=== PATIENT | male | born 2000 | race Hispanic/Latino ===

== ENCOUNTER 2024-06-06 13:32 | Emergency (ER) | payer OTHER ==
[~2024-06-06] VITALS: Ht 170.2 cm; Wt 56.7 kg
[2024-06-06] MEDS: 0.9%NACL 1000ML 1,000 ML IV ONE (14:05)
[2024-06-06 14:26] LABS: BASOPHILS # (AUTO) 0.04 K/uL (0.00-0.20); BASOPHILS % (AUTO) 0.7 % (0.0-5.0); EOSINOPHILS # (AUTO) 0.07 K/uL (0.00-0.70); EOSINOPHILS % (AUTO) 1.2 % (0.0-8.0); HEMATOCRIT 45.1 % (42-54); IMMATURE GRANULOCYTE ABSOLUTE 0.02 K/uL (0-1); LYMPHOCYTES # (AUTO) 2.3 K/uL (1.0-4.8); LYMPHOCYTES % (AUTO) 38.7 % (21.0-51.0); MEAN CORPUSCULAR HEMOGLOBIN 30.3 pg (27.0-33.0); MEAN CORPUSCULAR HGB CONC 34.1 g/dL (32.0-36.0); MEAN CORPUSCULAR VOLUME 88.6 fL (79-99); MONOCYTES # (AUTO) 0.5 K/uL (0.1-1.0); MONOCYTES % (AUTO) 8.1 % (3.0-13.0); PLATELET COUNT (AUTO) 368 K/uL (130-400); RED BLOOD CELL COUNT(AUTO) 5.09 MIL/uL (4.50-6.20); RED CELL DISTRIBUTION WIDTH 11.8 % (11.0-15.5); WHITE BLOOD COUNT (AUTO) 5.9 K/uL (4.8-10.8)
[2024-06-06 14:39] LABS: INR 0.94 (0.85-1.15); PROTHROMBIN TIME 10.6 SEC (9.6-11.6)
[2024-06-06] MEDS: diazePAM 5 MG/ML 2 ML SYG IVP ONE (14:39)
[2024-06-06 14:41] LABS: PARTIAL THROMBOPLASTIN TIME 28.2 SEC (26.3-35.5)
[2024-06-06 14:43] LABS: ALCOHOL, BLOOD < 3 mg/dL (0-10); CREATINE KINASE, TOTAL 189 U/L (21-232)
--- NOTE | 2024-06-06 14:46 | HMCIMG ---
CHEST 1VW REASON: tachycardia COMPARISON: None. FINDINGS: Single view of the chest was obtained. Lungs are clear. Heart size is normal. There is no pulmonary vascular congestion. Mediastinum and bony thorax appear unremarkable. IMPRESSION: 1. Normal single view chest x-ray.
[2024-06-06 14:51] LABS: B-TYPE NATRIURETIC PEPTIDE < 5 pg/mL (0-100)
[2024-06-06] MEDS ORDERED: MAGNESIUM 2GM PREMIX 50ML 50 ML IV SCH (15:28)
--- NOTE | 2024-06-06 15:38 | ERN ---
General Chief Complaint: Numbness Stated Complaint: NUMBNESS Source: patient History of Present Illness Initial Comments PATIENT IS A 24-YEAR-OLD MALE COMING IN TO BE EVALUATED FOR ANXIETY. PATIENT STATES THE SYMPTOMS HAVE BEEN ONGOING FOR SOME TIME. PATIENT ALSO STATES THAT HE HAS BEEN VAPING AND THIS MORNING STARTED HAVING SHORTNESS OF BREATH. Allergies: Coded Allergies: No Known Allergies (Unverified Allergy, Unknown, 06/06/24) Past Medical History Past Medical History: No Pertinent History Past Surgical History: None ROS Dictation CONSTITUTIONAL: NO CHILLS, NO FEVER, NO WEAKNESS, NO DIAPHORESIS, NO MALAISE. HEAD/FACE: NO SIGNS OF TRAUMA. EENT: NO EYE PAIN, NO BLURRED VISION, NO TEARING, NO DOUBLE VISION, NO EAR PAIN, NO EAR DISCHARGE, NO NOSE PAIN, NO NASAL CONGESTION, NO THROAT PAIN, NO THROAT SWELLING, NO MOUTH PAIN. RESPIRATORY: NO COUGH, NO ORTHOPNEA, NO SOB, NO STRIDOR, NO WHEEZING. CARDIOVASCULAR: NO CHEST PAIN, NO EDEMA, NO PALPITATIONS, NO SYNCOPE. GASTROINTESTINAL/ABDOMINAL: NO ABDOMINAL PAIN, NO CONSTIPATION, NO DIARRHEA, NO NAUSEA, NO VOMITING. GENITOURINARY: NO ABNORMAL DISCHARGE, NO DYSURIA, NO FREQUENT URINATION, NO HEMATURIA. NO COMPLAINTS OF PAIN IN THE GENITALS. MUSCULOSKELETAL: NO BACK PAIN, NO GOUT, NO JOINT PAIN, NO JOINT SWELLING, NO MUSCLE PAIN, NO MUSCLE STIFFNESS, NO NECK PAIN. INTEGUMENTARY: NO CHANGE IN COLOR, NO CHANGE IN HAIR/NAILS, NO DRYNESS, NO LESION, NO LUMPS, NO RASH. NEUROLOGICAL/PSYCH: NO ANXIETY, NOT DEPRESSED, NO EMOTIONAL PROBLEM, NO HEADACHE, NO NUMBNESS, NO PRE-EXISTING DEFICIT, NO HISTORY OF SEIZURES, NO TREMORS, NO WEAKNESS. HEMATOLOGIC/LYMPHATIC: NOT ANEMIC, NO HISTORY OF BLOOD CLOTS, NO APPARENT BLEEDING, NO BRUISING, GLANDS NOT SWOLLEN. ALL SYSTEMS NEGATIVE, EXCEPT NOTED. Physical Exam Physical Exam Dictation VITAL SIGNS: REVIEWED. GENERAL APPEARANCE: ALERT, ORIENTED X3, NO ACUTE DISTRESS, OBESE. HEAD AND FACE: NON-TRAUMATIC. EYES: PERRL, PINK CONJUNCTIVAS, EYELID NO TRAUMA, ANTERIOR CHAMBER CLEAR. EARS: PINNAS INTACT AND NO SIGNS OF TRAUMA OR ERYTHEMA. EAR CANALS CLEAR AND NO DISCHARGE. TMS NO ERYTHEMA. NOSE: NO DISCHARGE, NO BLEEDING. OROPHARYNX: MOUTH NORMAL, TEETH NO CARIES, TONGUE PINK. PHARYNX CLEAR, NO ERYTHEMA. TONSILS NO EXUDATES, NO ABSCESSES NOTED. MUCOUS MEMBRANE MOIST. NECK: SUPPLE, NON-TENDER, NO THYROMEGALY, NO MASSES, NO JVD, NO BRUITS. BREAST: DEFERRED. CHEST: NO TENDERNESS, NO CREPITUS, NO PARADOXICAL MOVEMENT, NO RETRACTIONS. LUNGS: CLEAR, WELL-VENTILATED, SYMMETRIC, NO RALES, NO WHEEZING, NO RHONCHI, NO STRIDOR, GOOD BREATH SOUNDS BILATERALLY. HEART: REGULAR RATE, REGULAR RHYTHM, NO MURMUR, NO GALLOPS. VASCULAR: NO PERIPHERAL EDEMA. ABDOMEN: SOFT, POSITIVE BOWEL SOUNDS, NONDISTENDED, NO GUARDING, NONTENDER, NO REBOUND, NO MASSES NO HEPATOMEGALY, NO SPLENOMEGALY, NO ALEMAN'S SIGN, NO HERNIAS. RECTAL: DEFERRED. GENITAL: DEFERRED. NEUROLOGICAL: NORMAL SPEECH, GROSS MOTOR FUNCTION INTACT, GROSS SENSORY FUNCTION INTACT. MUSCULOSKELETAL: NECK NONTENDER, FULL RANGE OF MOTION, BACK NONTENDER, FULL RANGE OF MOTION. EXTREMITIES: NONTENDER, FULL RANGE OF MOTION. SKIN: COLOR PINK, DRY, NO TURGOR, NO RASH, NO LACERATIONS, NO ABRASIONS, NO CONTUSIONS. LYMPHATICS: DEFERRED. Results Laboratory and Microbiology Lab and Micro Result Laboratory Tests Test 06/06/24 14:05 06/06/24 15:20 White Blood Count 5.9 K/uL (4.8-10.8) Red Blood Count 5.09 MIL/uL (4.50-6.20) Hemoglobin 15.4 g/dL (14.0-18.0) Hematocrit 45.1 % (42-54) Mean Corpuscular Volume 88.6 fL (79-99) Mean Corpuscular Hemoglobin 30.3 pg (27.0-33.0) Mean Corpuscular Hemoglobin Concent 34.1 g/dL (32.0-36.0) Red Cell Distribution Width 11.8 % (11.0-15.5) Platelet Count 368 K/uL (130-400) Mean Platelet Volume 10.1 fL (7.5-10.5) Immature Granulocyte % (Auto) 0.3 % (0-1) Neutrophils (%) (Auto) 51.0 % (40.0-77.0) Lymphocytes (%) (Auto) 38.7 % (21.0-51.0) Monocytes (%) (Auto) 8.1 % (3.0-13.0) Eosinophils (%) (Auto) 1.2 % (0.0-8.0) Basophils (%) (Auto) 0.7 % (0.0-5.0) Neutrophils # (Auto) 3.0 K/uL (1.8-7.7) Lymphocytes # (Auto) 2.3 K/uL (1.0-4.8) Monocytes # (Auto) 0.5 K/uL (0.1-1.0) Eosinophils # (Auto) 0.07 K/uL (0.00-0.70) Basophils # (Auto) 0.04 K/uL (0.00-0.20) Absolute Immature Granulocyte (auto 0.02 K/uL (0-1) Nucleated Red Blood Cells 0.0 % (0.0-0.19) Prothrombin Time 10.6 SEC (9.6-11.6) Prothromb Time International Ratio 0.94 (0.85-1.15) Activated Partial Thromboplast Time 28.2 SEC (26.3-35.5) Sodium Level 141 mmol/L (136-145) Potassium Level 3.2 mmol/L (3.5-5.1) L Chloride Level 100 mmol/L (101-111) L Carbon Dioxide Level 26 mmol/L (21-32) Blood Urea Nitrogen 9 mg/dL (7-18) Creatinine 1.1 mg/dL (0.5-1.3) Glomerular Filtration Rate Calc 96 mL/min (>90) Random Glucose 154 mg/dL (70-105) H Total Calcium 9.6 mg/dL (8.5-10.1) Magnesium Level 1.70 mg/dL (1.80-2.40) L Total Creatine Kinase 189 U/L (21-232) Troponin I High Sensitivity < 4 ng/L (4-75) L B-Type Natriuretic Peptide < 5 pg/mL (0-100) Serum Alcohol < 3 mg/dL (0-10) Urine Color LIGHT-YELLOW (YELLOW) Urine Appearance CLEAR (CLEAR) Urine pH 5.0 (5.0-8.0) Urine Specific [place] 1.011 (1.001-1.031) Urine Protein NEGATIVE mg/dL (NEGATIVE) Urine Glucose (UA) 30 mg/dL (NEGATIVE) H Urine Ketones 5 mg/dL (NEGATIVE) H Urine Occult Blood NEGATIVE (NEGATIVE) Urine Nitrate NEGATIVE (NEGATIVE) Urine Bilirubin NEGATIVE mg/dL (NEGATIVE) Urine Urobilinogen 0.2 mg/dL (0.2-1.0) Urine Leukocyte Esterase NEGATIVE Amy/uL Urine RBC 0-1 /HPF (0-1) Urine WBC 0-1 /HPF (0-1) Urine Bacteria None /HPF (None Seen) Urine Opiates Screen NEGATIVE (NEGATIVE) Urine Barbiturates Screen NEGATIVE (NEGATIVE) Urine Phencyclidine Screen NEGATIVE (NEGATIVE) Urine Amphetamines Screen NEGATIVE (NEGATIVE) Urine Benzodiazepines Screen POSITIVE (NEGATIVE) H Urine Cocaine Screen NEGATIVE (NEGATIVE) Urine Marijuana (THC) Screen POSITIVE (NEGATIVE) H Labs Reviewed?: Yes EKG/XRAY/US/CT/MRI EKG Comment 06/06/2024 TIME 1:55 P.M. VENTRICULAR RATE [address] WAVE ELEVATION OR DEPRESSION X-RAY Comment [address] [address] IMAGING REPORT Signed PATIENT: STEFANO BARRAGAN MR#: [id number] : 2000 SEX: M AGE: 24 LOCATION: [facility] ORDER 1352 STATUS: [facility] REPORT#: [id number] SERVICE 1346 REASON: tachycardia ORDERING PHYSICIAN: KARTHIKEYAN GOMES MD PROCEDURE: CXR1VW - CHEST 1VW CHEST 1VW REASON: tachycardia COMPARISON: None. FINDINGS: Single view of the chest was obtained. Lungs are clear. Heart size is normal. There is no pulmonary vascular congestion. Mediastinum and bony thorax appear unremarkable. IMPRESSION: 1. Normal single view chest x-ray. DICTATED BY: BANG SILVA MD DATE: 06/06/241442 ELECTRONICALLY SIGNED BY: ABNG SILVA MD DATE: 06/06/241445 [facility] MDM: DIFFERENTIAL DIAGNOSIS: ANXIETY, PANIC ATTACK, SO SHE WAS ABUSE, PATIENT IS A 24-YEAR-OLD MALE COMING IN TO BE EVALUATED FOR SHORTNESS OF BREATH AND FEELING ANXIOUS. LABORATORY WORKUP NEGATIVE FOR ACUTE FINDINGS. PATIENT DID PRESENT WITH MILD DECREASE IN POTASSIUM AND MAGNESIUM WHICH WERE REPLACED. PATIENT ALSO WAS POSITIVE FOR CANNABIS WHICH WAS COUNSELED AGAINST. PATIENT WILL BE DISCHARGED IN STABLE CONDITION WITH A DIAGNOSIS OF ANXIETY AND CANNABIS ABUSE. ED Course Orders Procedure Category Date Status Time Cbc With Differential LAB 06/06/24 Complete 13:46 Prothrombin Time With LAB 06/06/24 Complete INR 13:46 B-Type Natriuretic LAB 06/06/24 Complete Peptide 13:46 Chest 1vw RAD 06/06/24 Resulted 13:46 12 Lead Ekg Tracing- EKG 06/06/24 Logged Technical 13:46 0.9%Nacl 1000ml (Ns PHA 06/06/24 Complete 1000ml) 14:00 Magnesium LAB 06/06/24 Complete 13:46 Creatine Kinase, Total LAB 06/06/24 Complete 13:46 Troponin I High LAB 06/06/24 Complete Sensitivity 13:46 Urinalysis Profile LAB 06/06/24 Complete 13:46 Partial LAB 06/06/24 Complete Thromboplastin Time 13:46 Drug Screen Urine LAB 06/06/24 Complete 13:46 Alcohol, Blood LAB 06/06/24 Complete 13:46 Diazepam 5 Mg/Ml 2 Ml PHA 06/06/24 Complete Syg (Valium 5 Mg/M 14:30 Magnesium 2gm Premix PHA 06/06/24 In Process 50ml (Magnesium 2gm 15:28 Basic Metabolic Panel LAB 06/06/24 Complete 16:10 Potassium Bicarb/Cit PHA 06/06/24 Verified Ac 25meq (K-Lyte Ta 17:00 Current Medications Medications (Trade) Dose Ordered Sig/Larry Route PRN Reason Start Time Stop Time Status Last Admin Dose Admin Diazepam (VALium 5 MG/ML 2 ML SYG) 5 mg ONCE ONCE IVP 06/06/24 14:30 06/06/24 14:31 DC 06/06/24 14:39 Magnesium Sulfate 50 ml @ 0 mls/hr PROTOCOL IV 06/06/24 15:28 07/06/24 15:27 Sodium Chloride 1,000 ml @ 0 mls/hr ONCE ONCE IV 06/06/24 14:00 06/06/24 14:01 DC 06/06/24 14:05 Vital Signs Date Time Temp Pulse Resp B/P (MAP) Pulse Ox O2 Delivery O2 Flow Rate FiO2 06/06/24 14:47 92 20 118/80 95 Room Air* 0 21 06/06/24 13:55 98.2 122 12 141/97 98 Room Air* 0 21 06/06/24 13:48 97.9 138 18 152/107 98 Room Air 0 DX & DISP Disposition: Discharge Departure Impression: Primary Impression: Anxiety Additional Impressions: Panic attack, Cannabis abuse Condition: Stable Scripts Buspirone HCl (Buspar) 15 Mg Tab 1 TAB PO BID for 30 Days, #60 TAB 0 Refills Prov: KARTHIKEYAN GOMES MD 06/06/24 Additional Instructions: FOLLOW-UP WITH PRIMARY CARE PROVIDER IN 1 TO 2 DAYS. TAKE MEDICATIONS DIRECTED HERE IN THE EMERGENCY ROOM. OKAY TO CONTINUE HOME MEDICATIONS UNLESS OTHERWISE DISCUSSED DURING YOUR VISIT IN THE EMERGENCY ROOM TODAY. RETURN TO YOUR NEAREST EMERGENCY ROOM IF SYMPTOMS WORSEN OR IF THERE IS NO IMPROVEMENT. CALL 911 IF YOU NEED IMMEDIATE ASSISTANCE. TAKE TYLENOL [id number] NEEDED AND IF NO CONTRAINDICATIONS ARE PRESENT. INCREASE ORAL HYDRATION. A WOUND CULTURE OR URINE CULTURE WAS ORDERED HERE IN THE EMERGENCY ROOM DEPARTMENT PLEASE FOLLOW-UP WITH PRIMARY CARE PROVIDER AND ADVISE THEM TO GET REPEAT PORTS FROM OUR FACILITY. IF YOU HAD ANY FRANCISCO J WRAP/SPLINTS THAT WERE APPLIED HERE, PLEASE DO NOT REMOVE THEM UNTIL YOU SEE YOUR PRIMARY CARE OR SPECIALTY. REFERRALS: Referrals: NONE (PCP) JOSE ANTONIO WELCH MD Time of Disposition: 16:33 KARTHIKEYAN GOMES MD Jun 06, 2024 15:38
[2024-06-06 15:58] LABS: APPEARANCE,URINE CLEAR (CLEAR); BILIRUBIN,URINE NEGATIVE (NEGATIVE); COLOR,URINE LIGHT-YELLOW (YELLOW); GLUCOSE, URINE (UA) 30 mg/dL (NEGATIVE); KETONES,URINE 5 mg/dL (NEGATIVE); LEUKOCYTE ESTERASE ,URINE NEGATIVE Leu/uL (NEGATIVE); NITRATE,URINE NEGATIVE (NEGATIVE); OCCULT BLOOD,URINE NEGATIVE (NEGATIVE); PROTEIN,URINE NEGATIVE (NEGATIVE); UROBILINOGEN,URINE 0.2 mg/dL (0.2-1.0)
[2024-06-06 16:00] LABS: AMPHET/METH SCREEN,URINE NEGATIVE (NEGATIVE); BARBITURATE SCREEN, URINE NEGATIVE (NEGATIVE); BENZODIAZEPINES SCREEN,URINE POSITIVE (NEGATIVE); CANNABINOID SCREEN,URINE POSITIVE (NEGATIVE); COCAINE SCREEN,URINE NEGATIVE (NEGATIVE); OPIATE SCREEN,URINE NEGATIVE (NEGATIVE); PHENCYCLIDINE SCREEN,URINE NEGATIVE (NEGATIVE)
[2024-06-06 16:06] LABS: ADD UA MICROSCOPIC YES
[2024-06-06 16:08] LABS: MUCUS,URINE RARE LPF (None Seen); RBC,URINE 0-1 /HPF (0-1); WBC,URINE 0-1 /HPF (0-1)
[2024-06-06 16:17] LABS: CREATININE 1.1 mg/dL (0.5-1.3); POTASSIUM 3.2 mmol/L (3.5-5.1)
[2024-06-06 16:34] VITALS: BP 142/93; PULSE 100; RESP 16; TEMP 98; O2SAT 98
[2024-06-06] MEDS ORDERED: BUSP15 PO (16:34)
[2024-06-06] MEDS: MAGNESIUM OXIDE 400 MG TABLET ONE (16:55)
[2024-06-06] MEDS: PoTASSium BIcarbonate/CIT AC 25 MEQ TABLET.EFF PO SCH (16:55)
[2024-06-06] MEDS: MAGNESIUM OXIDE 400 MG TABLET PO SCH (17:11)
[2024-06-06] MEDS ORDERED: MAGNESIUM OXIDE 400 MG TABLET PO SCH (18:00)
--- NOTE | 2024-06-07 08:06 | EKG ---
[facility] Test Date: 2024-06-06 Test Time: 13:55:53 Pat Name: STEFANO BARRAGAN Department: ED Room: Gender: M Chef Assistant: [id number] : 2000 Requested By: KARTHIKEYAN GOMES Order Number: [id number] Reading MD: Trell Freitas Measurements Intervals [place] Rate: 108 P: 46 VT: 172 QRS: 62 QRSD: 92 T: 41 QT: 339 QTc: 456 Interpretive Statements Sinus tachycardia No previous ECG available for comparison Electronically Signed On 06-09-2024 16:00:20 CASE MANAGER SPECIALIST by Trell Freitas Please click the below link to view image of tracing.
== END 2024-06-06 17:18 | disposition home or self-care (01) ==
LOC: EDH 13:32
DX: F41.0 Panic disorder [episodic paroxysmal anxiety] (principal); F12.10 Cannabis abuse, uncomplicated; Z79.899 Other long term (current) drug therapy
CPT/HCPCS: 99285; 96374; 71045; 96361; 82550; 83735; 84484; 80048; 83880; 80305; 85025; 85610; 85730; 36415; 93005; 81001; J3475; J7030; J3360